=== PATIENT | male | born 1965 | race Caucasian/White ===

== ENCOUNTER 2021-06-29 11:26 | Emergency (ER) | payer MEDICAID ==
[~2021-06-29] VITALS: Ht 165.1 cm; Wt 88.0 kg
[2021-06-29 11:37] VITALS: BP 136/75
[2021-06-29] MEDS ORDERED: IBUPROFEN 600MG TABLET PO ONE (14:00)
[2021-06-29] MEDS ORDERED: TOPUD MT (14:57)
== END 2021-06-29 15:10 | disposition home or self-care (01) ==
LOC: ER 12:21
DX: S09.93XA Unspecified injury of face, initial encounter (principal); M25.562 Pain in left knee; E78.00 Pure hypercholesterolemia, unspecified; I10 Essential (primary) hypertension; R51.9 Headache, unspecified; Y04.0XXA Assault by unarmed brawl or fight, initial encounter; Y93.89 Activity, other specified; Y92.89 Other specified places as the place of occurrence of the external cause; Y99.8 Other external cause status
CPT/HCPCS: 70486; 73562; 99284